=== PATIENT | female | born 1960 | race American Indian/Alaskan Native ===

== ENCOUNTER 2020-08-25 09:04 | Emergency (ER) | payer OTHER ==
[2020-08-25 09:15] VITALS: BP 160/70
[2020-08-25 09:54] LABS: Basophils % (Auto) 0.2 % (0.0-1.8); Hematocrit 41.7 % (30.3-42.9); Hemoglobin 14.2 gm/dl (10.1-14.3); Lymphocytes # (Auto) 0.8 K/mm3 (1.2-5.4); Lymphocytes % (Auto) 12.5 % (13.4-35.0); Mean Corpuscular HGB Conc 34 % (30-34); Mean Corpuscular Volume 101 fl (79-97); Monocytes # (Auto) 0.3 K/mm3 (0.0-0.8); Monocytes % (Auto) 4.8 % (0.0-7.3); Platelet Count 246 K/mm3 (140-440); Red Blood Count 4.13 M/mm3 (3.65-5.03); Red Cell Distribution Width 14.4 % (13.2-15.2)
[2020-08-25 10:29] LABS: Alanine Aminotransferase 23 units/L (7-56); Albumin 4.6 g/dL (3.9-5); BUN/Creatinine Ratio 16; Blood Urea Nitrogen 13 mg/dL (7-17); Calcium 9.9 mg/dL (8.4-10.2); Hemolysis Index 3
[2020-08-25] MEDS ORDERED: POTASSIUM CHLORIDE 10 MEQ 10 MEQ/100 ML BAG IV ONE (12:39)
[2020-08-25] MEDS ORDERED: SODIUM CHLORIDE 0.9% 1000 ML 1,000 ML IV ONE (12:39)
[2020-08-25] MEDS ORDERED: METOCLOPRAMIDE 10 MG/2 ML INJ IV ONE (12:39)
[2020-08-25] MEDS ORDERED: MORPHINE 4 MG/1 ML INJ IV ONE (12:50)
--- NOTE | 2020-08-25 12:52 | Emergency Department Report ---
ED Abdominal Pain HPI - General Chief Complaint: Nausea/Vomiting/Diarrhea Stated Complaint: VOMITTING Time Seen by Provider: 08/25/20 12:38 Source: patient Mode of arrival: Ambulatory Limitations: No Limitations - History of Present Illness Initial Comments: 60-year-old female with a past medical history of IBS presents to the ER today complaining of abdominal pain and vomiting. Patient states her symptoms started . Patient states that she was vomiting almost every hour, but today she is only vomited twice. She states that her emesis is mainly liquid, she denies any hematemesis or coffee-ground emesis. She states that she has been having frequent loose stools but not diarrhea. She reports left-sided abdominal pain. She denies any UTI symptoms, fever, chills, recent bad food intake, recent travel out of the country, or recent antibiotic use. She denies any apparent ill contacts. She is postmenopausal. She states that she went to the urgent care and she was sent here to the ER for further evaluation and treatment. MD Complaint: abdominal pain -: Sudden Severity scale (0 -10): 6 - Related Data Previous Rx's Medication Instructions Recorded Last Taken Type Hyoscyamine Subl [Levsin Sl 0.125 0.125 mg SL Q6HR PRN #10 tab 08/25/20 Unknown Rx TAB] Ondansetron [Zofran Odt] 4 mg PO Q8HR PRN #15 tab.rapdis 08/25/20 Unknown Rx Potassium Chloride [K-Dur] 10 meq PO BID #6 tablet 08/25/20 Unknown Rx Allergies Allergy/AdvReac Type Severity Reaction Status Date / Time No Known Allergies Allergy Unverified 08/25/20 09:15 ED Review of Systems ROS: Stated complaint: VOMITTING Other details as noted in HPI Comment: All other systems reviewed and negative Constitutional: denies: chills, fever Respiratory: denies: cough, shortness of breath, wheezing Cardiovascular: denies: chest pain, palpitations Gastrointestinal: abdominal pain, nausea, vomiting. denies: diarrhea, constipation, hematemesis, hematochezia Genitourinary: denies: urgency, dysuria, discharge Musculoskeletal: denies: back pain, joint swelling, arthralgia Skin: denies: rash, lesions Neurological: denies: headache, weakness, paresthesias Psychiatric: denies: anxiety, depression Hematological/Lymphatic: denies: easy bleeding, easy bruising ED Past Medical Hx - Past Medical History Previous Medical History?: Yes Hx Hypertension: Yes Additional medical history: IBS - Surgical History Past Surgical History?: No - Social History Smoking Status: Current Every Day Smoker Substance Use Type: Alcohol - Medications Home Medications: Home Medications Medication Instructions Recorded Confirmed Last Taken Type Hyoscyamine Subl [Levsin Sl 0.125 0.125 mg SL Q6HR PRN #10 tab 08/25/20 Unknown Rx TAB] Ondansetron [Zofran Odt] 4 mg PO Q8HR PRN #15 tab.rapdis 08/25/20 Unknown Rx Potassium Chloride [K-Dur] 10 meq PO BID #6 tablet 08/25/20 Unknown Rx ED Physical Exam - General Limitations: No Limitations General appearance: alert, in no apparent distress - Head Head exam: Present: atraumatic, normocephalic, normal inspection - ENT ENT exam: Present: normal exam, mucous membranes dry - Neck Neck exam: Present: normal inspection. Absent: meningismus - Respiratory Respiratory exam: Absent: respiratory distress - Cardiovascular Cardiovascular Exam: Present: regular rate, normal rhythm, normal heart sounds - GI/Abdominal GI/Abdominal exam: Present: soft. Absent: distended, tenderness - Neurological Exam Neurological exam: Present: alert, oriented X3, CN II-XII intact - Psychiatric Psychiatric exam: Present: normal affect, normal mood - Skin Skin exam: Present: intact ED Course Vital Signs 08/25/20 09:13 Temperature 98.3 F Pulse Rate 57 L Respiratory 17 Rate Blood Pressure 160/70 [Left] O2 Sat by Pulse 98 Oximetry ED Medical Decision Making - Lab Data Result diagrams: 08/25/20 09:24 08/25/20 09:24 - Radiology Data Radiology results: report reviewed - Medical Decision Making Patient presented to the ER today complaint of vomiting and left-sided abdominal pain. Patient reported improvement of her pain and nausea after Zofran and Tor adol. Patient was able to tolerate the potassium without vomiting. Labs reviewed, CMP showed hypokalemia with a potassium of 2.8 and her urine and her blood contains small amount of ketones which indicates some dehydration, her labs including renal functions, LFTs, and white blood cell count normal. Abdominal x-ray negative for anything acute. Patient has a nonsurgical abdominal exam. Her history, exam, diagnostic testing and current condition does not suggest acute appendicitis, bowel obstruction, bowel perforation, major GI bleed, severe diverticulitis, abdominal aortic aneurysm, mesenteric ischemia, volvulus, sepsis or any other significant pathology warranting further testing, continued ED treatment, admission or surgical consultation at this time. Discussed lab results and imaging results with patient. Discussed suspected diagnosis and treatment plan with patient. Patient expressed understanding of instructions and agree with plan. Patient was stable at time of discharge. Critical care attestation.: If time is entered above; I have spent that time in minutes in the direct care of this critically ill patient, excluding procedure time. ED Disposition Clinical Impression: Nausea and vomiting, Abdominal pain, Gastroenteritis, Hypokalemia Disposition: TO HOME OR SELFCARE Is pt being admited?: No Does the pt Need Aspirin: No Condition: Stable Instructions: Viral Gastroenteritis, Adult, [id number], Nausea and Vomiting, Adult, Potassium Content of Foods Prescriptions: Potassium Chloride [K-Dur] 10 meq PO BID #6 tablet Hyoscyamine Subl [Levsin Sl 0.125 TAB] 0.125 mg SL Q6HR PRN #10 tab PRN Reason: abdominal cramp Ondansetron [Zofran Odt] 4 mg PO Q8HR PRN #15 tab.rapdis PRN Reason: Nausea Referrals: PRIMARY CARE,MD [Primary Care Provider] - 3-5 Days Forms: Work/School Release Form(ED) Time of Disposition: 15:02
--- NOTE | 2020-08-25 13:19 | XRay Report ---
XR abd series w cxr 1VCHEST 1 VIEW, XR ABDOMEN 1 VIEW INDICATION / CLINICAL INFORMATION: epigastric pain. COMPARISON: None available. FINDINGS: SUPPORT DEVICES: None. HEART / MEDIASTINUM: No significant abnormality. LUNGS / PLEURA: Lungs are clear. Costophrenic sulci are sharp. No pneumothorax. ABDOMEN: Nonobstructive bowel gas pattern. No pneumoperitoneum. ADDITIONAL FINDINGS: IUD is present. Right 5 cm calcified fibroid. IMPRESSION: 1. No acute findings. 2. Nonobstructive bowel gas pattern. 3. IUD is present. There is a right calcified fibroid. Signer Name: Tomasz Alvarez MD Signed: 08/25/2020 1:15 PM Workstation Name: [id number]
[2020-08-25] MEDS ORDERED: KETOROLAC 30 MG/1 ML INJ IV ONE (13:30)
[2020-08-25] MEDS ORDERED: ONDANSETRON 4 MG/2 ML INJ IV ONE (13:30)
[2020-08-25] MEDS ORDERED: POTASSIUM CHLORIDE ER 20 MEQ TAB PO ONE (13:30)
[2020-08-25 14:39] LABS: Bilirubin,Urine NEG (Negative); Blood,Urine MOD (Negative); Color,Urine Yellow (Yellow); Mucus,Urine 2+ /HPF; Urobilinogen,Urine < 2.0 mg/dL (<2.0)
== END 2020-08-25 16:03 | disposition home or self-care (01) ==
LOC: ED 09:04
DX: K52.9 Noninfective gastroenteritis and colitis, unspecified (principal); E87.6 Hypokalemia; R11.2 Nausea with vomiting, unspecified; R10.9 Unspecified abdominal pain; I10 Essential (primary) hypertension; F17.200 Nicotine dependence, unspecified, uncomplicated; Z79.899 Other long term (current) drug therapy
CPT/HCPCS: 36415; 74022; 80053; 81001; 82010; 83690; 83735; 85025; 96361; 96374; 96375; 99284; J1885; J2405; J7030

== ENCOUNTER 2020-08-27 09:23 | Emergency (ER) | payer OTHER ==
[2020-08-27] MEDS ORDERED: FAMOTIDINE 20 MG/2 ML INJ IV ONE (09:58)
[2020-08-27] MEDS ORDERED: ONDANSETRON 4 MG/2 ML INJ IV ONE (09:58)
[2020-08-27] MEDS ORDERED: SODIUM CHLORIDE 0.9% 1000 ML 1,000 ML IV ONE (09:58)
--- NOTE | 2020-08-27 09:59 | Emergency Department Report ---
ED General Adult HPI - General Chief complaint: Nausea/Vomiting/Diarrhea Stated complaint: CHEST PAIN/VOMITTING PUI?: No Time Seen by Provider: 08/27/20 09:39 Source: patient, RN notes reviewed, old records reviewed Mode of arrival: Ambulatory Limitations: No Limitations - History of Present Illness Initial comments: The patient was evaluated in the emergency department for symptoms described in the history of present illness. He/she was evaluated in the context of the global COVID-19 pandemic, which necessitated consideration that the patient might be at risk for infection with the virus that causes COVID-19. [facility] protocols and algorithms that pertain to the evaluation of patients at risk for COVID-19 are in a state of rapid change based on information released by regulatory bodies including the CDC and federal and state organizations. These policies and algorithms were followed during the patient's care in the emergency department. Please note that these policies, procedures and recommendations changed on a rapid basis. The patient is a pleasant and cooperative 60-year-old female. She is not known to myself previously. She has a history of hypertension, IBS, and recreational cannabis consumption. The patient was seen in this department a few days ago with a complaint of abdominal cramping, and unopposed nausea and vomiting. Her laboratory studies demonstrated hypokalemia, and urinary ketones. She was discharged with nausea medicine and potassium supplementation. She presents today with complaints of persistent and recurrent intermittent nausea and vomiting. She states that she started having the symptoms approximately 1 week ago. She states that she has no significant abdominal pain currently, but that she had cramping. She is not defecated or passed gas in 1 week. The patient reports no history of abdominal surgeries that she is aware of. The patient denies headache, neck pain, chest pain. She has sore throat. She has no dysuria. The patient occasionally consumes marijuana. The patient states that her symptoms get better if she takes a hot bath and hot shower. Her last consumption of marijuana was approximately 1 week ago. She is going to follow-up with [facility] gastroenterology in the next few days. She thinks that she had a colonoscopy in the past few years, but does not specifically recall the results of this test. She states that she vomited 3 times today, nonbloody, nonbilious. She states that she vomited 6 times yesterday. -: Gradual, days(s) Severity scale (0 -10): 2 Consistency: intermittent Improves with: rest Worsens with: eating - Related Data Previous Rx's Medication Instructions Recorded Last Taken Type Ondansetron [Zofran Odt] 4 mg PO Q8HR PRN #15 tab.rapdis 08/25/20 Unknown Rx Potassium Chloride [K-Dur] 10 meq PO BID #6 tablet 08/25/20 Unknown Rx Veronica Root [Veronica] 250 mg PO QID PRN #30 capsule 08/27/20 Unknown Rx Metoclopramide [Reglan] 10 mg PO QID PRN #30 tab 08/27/20 Unknown Rx Potassium Chloride 20 meq PO BID #30 liquid 08/27/20 Unknown Rx Promethazine [Phenergan SUPPOS] 50 mg MN Q6H PRN #15 supp.rect 08/27/20 Unknown Rx Allergies Allergy/AdvReac Type Severity Reaction Status Date / Time No Known Allergies Allergy Unverified 08/25/20 09:15 ED Review of Systems ROS: Stated complaint: CHEST PAIN/VOMITTING Other details as noted in HPI Constitutional: denies: chills, fever Eyes: denies: eye discharge ENT: denies: epistaxis Respiratory: denies: cough, shortness of breath Cardiovascular: denies: chest pain Gastrointestinal: abdominal pain, nausea, vomiting, constipation Genitourinary: denies: dysuria Musculoskeletal: denies: back pain Neurological: denies: weakness Psychiatric: anxiety Hematological/Lymphatic: denies: easy bleeding ED Past Medical Hx - Past Medical History Previous Medical History?: Yes Hx Hypertension: Yes Additional medical history: IBS - Surgical History Past Surgical History?: No - Social History Smoking Status: Never Smoker Substance Use Type: None - Medications Home Medications: Home Medications Medication Instructions Recorded Confirmed Last Taken Type Ondansetron [Zofran Odt] 4 mg PO Q8HR PRN #15 tab.rapdis 08/25/20 Unknown Rx Potassium Chloride [K-Dur] 10 meq PO BID #6 tablet 08/25/20 Unknown Rx Veronica Root [Veronica] 250 mg PO QID PRN #30 capsule 08/27/20 Unknown Rx Metoclopramide [Reglan] 10 mg PO QID PRN #30 tab 08/27/20 Unknown Rx Potassium Chloride 20 meq PO BID #30 liquid 08/27/20 Unknown Rx Promethazine [Phenergan SUPPOS] 50 mg MN Q6H PRN #15 supp.rect 08/27/20 Unknown Rx ED Physical Exam - General Limitations: No Limitations General appearance: alert, in no apparent distress - Head Head exam: Present: atraumatic, normocephalic - Eye Eye exam: Present: normal appearance, EOMI. Absent: nystagmus - ENT ENT exam: Present: normal exam, normal orophraynx, mucous membranes moist, normal external ear exam - Neck Neck exam: Present: normal inspection, full ROM. Absent: tenderness, meningismus - Respiratory Respiratory exam: Present: normal lung sounds bilaterally. Absent: respiratory distress, wheezes, rales, rhonchi, stridor, decreased breath sounds - Cardiovascular Cardiovascular Exam: Present: regular rate, normal rhythm, normal heart sounds. Absent: bradycardia, tachycardia, irregular rhythm, systolic murmur, diastolic murmur, rubs, gallop - GI/Abdominal GI/Abdominal exam: Present: soft, normal bowel sounds. Absent: distended, tenderness, guarding, rebound, rigid, pulsatile mass - Extremities Exam Extremities exam: Present: normal inspection, full ROM, other (2+ pulses noted in the bilateral upper and lower extremities. There is no palpable cord. negative Homans sign. Muscular compartments are soft. The pelvis is stable.). Absent: pedal edema, calf tenderness - Back Exam Back exam: Present: normal inspection, full ROM. Absent: tenderness, CVA tenderness (R), CVA tenderness (L), paraspinal tenderness, vertebral tenderness - Neurological Exam Neurological exam: Present: alert, oriented X3, other (No facial droop. Tongue midline. Extraocular movements intact bilaterally. Facial sensation intact to light touch in V1, V2, V3 distribution bilaterally. 5 and a 5 strength in 4 extremities. Sensation intact to light touch in 4 extremities.). Absent: motor sensory deficit - Psychiatric Psychiatric exam: Present: normal affect, normal mood - Skin Skin exam: Present: warm, dry, intact, normal color. Absent: rash ED Course Vital Signs 08/27/20 08/27/20 08/27/20 09:24 09:44 09:46 Temperature 98.1 F Pulse Rate 66 68 Respiratory 20 12 Rate Blood Pressure 123/81 126/84 Blood Pressure [Right] O2 Sat by Pulse 97 97 99 Oximetry 08/27/20 08/27/20 08/27/20 09:48 10:00 10:16 Temperature 98.6 F Pulse Rate 86 55 L 61 Respiratory 18 12 13 Rate Blood Pressure 126/84 144/81 Blood Pressure 126/84 [Right] O2 Sat by Pulse 100 98 98 Oximetry 08/27/20 08/27/20 08/27/20 10:34 10:46 11:00 Temperature Pulse Rate 66 61 65 Respiratory 20 14 16 Rate Blood Pressure 144/81 144/81 144/81 Blood Pressure [Right] O2 Sat by Pulse 73 L 89 98 Oximetry 08/27/20 08/27/20 11:16 11:30 Temperature Pulse Rate 69 63 Respiratory 10 L 13 Rate Blood Pressure 142/85 142/85 Blood Pressure [Right] O2 Sat by Pulse 90 98 Oximetry - Reevaluation(s) Reevaluation #1: 08/27/20 10:35 Differential diagnosis, including but not limited to: Obstruction, volvulus, constipation, obstipation, cannabinoid hyperemesis syndrome, cyclic vomiting syndrome, IBS Assessment and plan: 60-year-old female, who was afebrile, with reassuring vital signs, presenting with intermittent nausea and vomiting, no bowel movement times one 1 week. I highly suspect cannabinoid hyperemesis syndrome versus IBS. 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 Patient counseled to discontinue cannabis consumption. We will treat her symptoms. She recently had a urinalysis and CBC obtained. We will recheck basic metabolic panel, and CT scan of the abdomen pelvis. We will treat her symptoms. She is clinically sober at this time. She denies toxic coingestions. I do not see an indication for serum toxicology or urine toxicology screen at this time. Reevaluation #2: 08/27/20 13:14 CT scan of the abdomen pelvis negative for acute findings. Patient's belly soft on repeat examination. Her laboratory studies are reviewed and appreciated. She is given crushed up potassium pills in applesauce. She is able to eat applesauce without difficulty. No active vomiting at this time. She has close outpatient follow-up with [facility]. She is suitable for discharge at this point time with outpatient follow-up. ED Medical Decision Making - Lab Data Result diagrams: 08/27/20 10:43 Vital Signs 08/27/20 08/27/20 09:24 09:48 Temperature 98.1 F 98.6 F Pulse Rate 66 86 Respiratory 20 18 Rate Blood Pressure 123/81 Blood Pressure 1269/84 [Right] O2 Sat by Pulse 97 100 Oximetry - EKG Data -: EKG Interpreted by Me EKG shows normal: sinus rhythm Rate: normal - EKG Data 08/27/20 10:35 Sinus rhythm, bradycardia, QTC within normal limits, low voltage, normal axis, normal intervals, poor R wave progression. The EKG is not a STEMI. There is no prior for comparison. - Radiology Data Radiology results: pending, report reviewed, image reviewed CT ABDOMEN AND PELVIS WITH CONTRAST INDICATION / CLINICAL INFORMATION: Ab dominal pain TECHNIQUE: Axial CT images were obtained through the abdomen and pelvis after IV contrast. All CT scans at this location are performed using CT dose reduction for ALARA by means of automated exposure control. COMPARISON: None available. FINDINGS: LOWER CHEST: Unremarkable LIVER: Focal area of hypoattenuation along the falciform ligament most likely reflects focal fatty infiltration. GALLBLADDER/BILIARY TREE: Unremarkable PANCREAS: Unremarkable SPLEEN: Unremarkable ADRENALS: Unremarkable KIDNEYS / URETER: Unremarkable URINARY BLADDER: Bladder is partially decompressed, though grossly unremarkable. REPRODUCTIVE ORGANS: Calcified uterine fibroids. IUD is present. STOMACH / SMAL L BOWEL: Stomach and small bowel are normal in caliber. No evidence of bowel inflammation. COLON: Colonic diverticulosis without evidence of diverticulitis. The appendix is normal in caliber. LYMPH NODES: No significant adenopathy. VASCULATURE: Mild atherosclerotic calcification without acute abnormality. OTHER: No free air, free fluid, or focal fluid collection is identified. SKELETAL SYSTEM: Mild scattered degenerative changes of the spine. No acute osseous findings. IMPRESSION: 1. No acute abnormality of the abdomen or pelvis. 2. Chronic, incidental findings as above. Signer Name: Rudi Aguilera MD Signed: 08/27/2020 9:51 AM Workstation Name: [id number] Critical care attestation.: If time is entered above; I have spent that time in minutes in the direct care of this critically ill patient, excluding procedure time. ED Disposition Clinical Impression: Hypokalemia, History of nausea and vomiting, Dehydration Disposition: DC-01 TO HOME OR SELFCARE Is pt being admited?: No Does the pt Need Aspirin: No Condition: Stable Additional Instructions: Minimize/avoid consumption of Motrin, ibuprofen, Naprosyn, Aleve, alcohol, heavy and spicy foods. Recommend that patient advance diet to bland foods, including bread, rice, apples, toast. Drink plenty of fluids, preferably Pedialyte or water. Take the potassium supplementation as directed, when taking potassium pills, consider crushing them up in applesauce to facilitate swallowing. Recommend that patient avoid consumption of tobacco, cannabis and marijuana. Do not take metformin medication for the next 2 days, if patient takes this medication. Take the nausea medications as needed and directed, and potassium supplementa tion as directed. Please return to the emergency room right away with new pain, worsened pain, migration of pain, projectile vomiting, change in mental status, confusion, inability to tolerate liquid feeds, new, worsened or different symptoms not present on the initial emergency room evaluation. Patient may continue the Zofran prescription that she was recently given. If this medication does not resolve nausea, patient may use Reglan prescription, and/or veronica prescription as needed for intractable vomiting. If these medications fail, patient may use the Phenergan suppository. Referrals: [facility] [Other] - 3-5 Days [facility] [Provider Group] - 7-10 days
--- NOTE | 2020-08-27 10:55 | Cat Scan Report ---
CT ABDOMEN AND PELVIS WITH CONTRAST INDICATION / CLINICAL INFORMATION: Abdominal pain TECHNIQUE: Axial CT images were obtained through the abdomen and pelvis after IV contrast. All CT sc ans at this location are performed using CT dose reduction for ALARA by means of automated exposure c ontrol. COMPARISON: None available. FINDINGS: LOWER CHEST: Unremarkable LIVER: Focal area of hypoattenuation along the falciform ligament most likely reflects focal fatty in filtration. GALLBLADDER/BILIARY TREE: Unremarkable PANCREAS: Unremarkable SPLEEN: Unremarkable ADRENALS: Unremarkable KIDNEYS / URETER: Unremarkable URINARY BLADDER: Bladder is partially decompressed, though grossly unremarkable. REPRODUCTIVE ORGANS: Calcified uterine fibroids. IUD is present. STOMACH / SMALL BOWEL: Stomach and small bowel are normal in caliber. No evidence of bowel inflammati on. COLON: Colonic diverticulosis without evidence of diverticulitis. The appendix is normal in caliber. LYMPH NODES: No significant adenopathy. VASCULATURE: Mild atherosclerotic calcification without acute abnormality. OTHER: No free air, free fluid, or focal fluid collection is identified. SKELETAL SYSTEM: Mild scattered degenerative changes of the spine. No acute osseous findings. IMPRESSION: 1. No acute abnormality of the abdomen or pelvis. 2. Chronic, incidental findings as above. Signer Name: Rudi Aguilera MD Signed: 08/27/2020 10:51 AM Workstation Name: [id number]
[2020-08-27 11:48] VITALS: BP 126/84
[2020-08-27 11:57] LABS: BUN/Creatinine Ratio 22; Blood Urea Nitrogen 22 mg/dL (7-17); Calcium 9.1 mg/dL (8.4-10.2); Hemolysis Index 13
[2020-08-27] MEDS ORDERED: POTASSIUM CHLORIDE ER 20 MEQ TAB PO ONE (12:05)
[2020-08-27] MEDS ORDERED: LIDOCAINE VISCOUS 2% 15 ML ORAL LIQD PO ONE (12:10)
[2020-08-27] MEDS ORDERED: POTASSIUM CHLORIDE 10 MEQ 10 MEQ/100 ML BAG IV ONE (12:17)
[2020-08-27] MEDS: POTASSIUM CHLORIDE 10 MEQ 10 MEQ/100 ML BAG IV SCH ×2 (12:29→14:04)
== END 2020-08-27 15:05 | disposition home or self-care (01) ==
LOC: ED 09:23
DX: E87.6 Hypokalemia (principal); E86.0 Dehydration; I10 Essential (primary) hypertension; Z79.899 Other long term (current) drug therapy
CPT/HCPCS: 36415; 74177; 80048; 82550; 83735; 93005; 96361; 96365; 96366; 96375; 99284; J2405; J3480; J7030; Q9967

== ENCOUNTER 2020-12-20 17:25 | Emergency (ER) | payer OTHER ==
[2020-12-20] MEDS ORDERED: ASPIRIN 325 MG TAB PO ONE (17:43)
[2020-12-20 18:17] LABS: Basophils % (Auto) 0.2 % (0.0-1.8); Hematocrit 46.3 % (30.3-42.9); Hemoglobin 15.9 gm/dl (10.1-14.3); Lymphocytes # (Auto) 0.4 K/mm3 (1.2-5.4); Lymphocytes % (Auto) 8.7 % (13.4-35.0); Mean Corpuscular HGB Conc 34 % (30-34); Mean Corpuscular Volume 101 fl (79-97); Monocytes # (Auto) 0.1 K/mm3 (0.0-0.8); Monocytes % (Auto) 1.8 % (0.0-7.3); Platelet Count 212 K/mm3 (140-440); Red Blood Count 4.57 M/mm3 (3.65-5.03); Red Cell Distribution Width 15.7 % (13.2-15.2)
--- NOTE | 2020-12-20 18:19 | XRay Report ---
CHEST 2 VIEWS INDICATION / CLINICAL INFORMATION: c/o chest pain. COMPARISON: 08/25/20 FINDINGS: SUPPORT DEVICES: None. HEART / MEDIASTINUM: No significant abnormality. LUNGS / PLEURA: No significant pulmonary or pleural abnormality. No pneumothorax. ADDITIONAL FINDINGS: No significant additional findings. IMPRESSION: 1. No acute findings. No change. Signer Name: Chris Saldaña MD Signed: 12/20/2020 6:14 PM Workstation Name: [id number]
[2020-12-20 18:26] LABS: Alanine Aminotransferase 43 units/L (7-56); Albumin 4.6 g/dL (3.9-5); BUN/Creatinine Ratio 10; Blood Urea Nitrogen 8 mg/dL (7-17); Hemolysis Index 9
[2020-12-20] MEDS ORDERED: METOCLOPRAMIDE 10 MG/2 ML INJ IV ONE (20:37)
[2020-12-20] MEDS ORDERED: ONDANSETRON 4 MG/2 ML INJ IV ONE (20:37)
[2020-12-20] MEDS ORDERED: diphenhydrAMINE 50 MG/ML VIAL IV ONE (20:37)
[2020-12-20] MEDS ORDERED: PANTOPRAZOLE 40 MG INJ IV ONE (20:42)
--- NOTE | 2020-12-20 20:43 | Emergency Department Report ---
ED Abdominal Pain HPI - General Chief Complaint: Chest Pain Stated Complaint: CHEST/ABD PAIN Time Seen by Provider: 12/20/20 20:28 Source: patient, old records reviewed Mode of arrival: Ambulatory Limitations: No Limitations - History of Present Illness Initial Comments: 60-year-old female the past medical history of hypertension and recently diagnosed with IBS presents to the hospital complaints of nausea, vomiting, with p.o. intolerance x3 days with constipation. Patient has had similar symptoms since July and had several ER visits here in August. She had outpatient endoscopy in August as well. Patient was seen by her GI doctor Dr. Alen Rea MD affiliated with [facility] on December 14. She was started on Zofran 4 mg every 12 hours as needed nausea, pantoprazole delayed release 40 mg once a day for esophagitis, and Linzess 145 mcg for constipation. Patient denies any p.o. intolerance doing this GI visit. Patient has been taking these medications for the last 3 days without improvement. Is noted during the visit here in August she admits to cannabis use and suspected to have cannabis hyperemesis syndrome patient is currently unable to tolerate fluid or food intake. She complains of a nauseated feeling to her epigastric area without significant pain. She also denies fever, hematochezia, or melena. Patient states she drinks alcohol on occasion but has decreased intake secondary to increased reflux symptoms. She also continues to occasionally use marijuana. Patient had a CT abdomen pelvis here August 27 without acute findings. No abdominal surgeries reported. - Related Data Previous Rx's Medication Instructions Recorded Last Taken Type Ondansetron [Zofran Odt] 4 mg PO Q8HR PRN #15 tab.rapdis 08/25/20 Unknown Rx Potassium Chloride [K-Dur] 10 meq PO BID #6 tablet 08/25/20 Unknown Rx Veronica Root [Veronica] 250 mg PO QID PRN #30 capsule 08/27/20 Unknown Rx Metoclopramide [Reglan] 10 mg PO QID PRN #30 tab 08/27/20 Unknown Rx Potassium Chloride 20 meq PO BID 3 Days liquid 12/21/20 Unknown Rx Promethazine [Phenergan SUPPOS] 50 mg TX Q6H PRN #15 supp.rect 12/21/20 Unknown Rx Allergies Allergy/AdvReac Type Severity Reaction Status Date / Time No Known Allergies Allergy Unverified 08/25/20 09:15 ED Review of Systems ROS: Stated complaint: CHEST/ABD PAIN Other details as noted in HPI ED Past Medical Hx - Past Medical History Previous Medical History?: Yes Hx Hypertension: Yes Additional medical history: IBS - Surgical History Past Surgical History?: No - Social History Smoking Status: Current Every Day Smoker Substance Use Type: Alcohol, Prescribed - Medications Home Medications: Home Medications Medication Instructions Recorded Confirmed Last Taken Type Ondansetron [Zofran Odt] 4 mg PO Q8HR PRN #15 tab.rapdis 08/25/20 Unknown Rx Potassium Chloride [K-Dur] 10 meq PO BID #6 tablet 08/25/20 Unknown Rx Veronica Root [Veronica] 250 mg PO QID PRN #30 capsule 08/27/20 Unknown Rx Metoclopramide [Reglan] 10 mg PO QID PRN #30 tab 08/27/20 Unknown Rx Potassium Chloride 20 meq PO BID 3 Days liquid 12/21/20 Unknown Rx Promethazine [Phenergan SUPPOS] 50 mg [place] Q6H PRN #15 supp.rect 12/21/20 Unknown Rx ED Physical Exam - General Limitations: No Limitations - Other Other exam information: General: No acute distress Head: Atraumatic Eyes: normal appearance Neck: Normal appearance, no midline tenderness Chest: Clear to auscultation bilaterally CV: Regular rate and rhythm Abdomen: Soft, normal bowel sounds, nontender, nondistended, no rebound or guarding Back: Normal inspection Extremity: Normal inspection, full range of motion Neuro: Alert O x 3, no facial asymmetry, speech clear, no gross motor sensory deficit Psych: Appropriate behavior Skin: No rash ED Course Vital Signs 12/20/20 12/20/20 12/20/20 20:34 20:45 21:01 Pulse Rate 63 61 Respiratory 22 18 Rate Blood Pressure 162/87 147/78 O2 Sat by Pulse 99 100 100 Oximetry 12/20/20 12/20/20 12/20/20 21:15 21:30 21:45 Pulse Rate 62 61 Respiratory 17 18 Rate Blood Pressure 148/80 148/80 153/84 O2 Sat by Pulse 100 100 100 Oximetry 12/20/20 12/20/20 12/20/20 22:01 22:15 22:31 Pulse Rate 62 64 65 Respiratory 16 17 15 Rate Blood Pressure 166/85 148/80 146/77 O2 Sat by Pulse 100 100 100 Oximetry 12/20/20 12/20/20 12/20/20 22:45 23:01 23:15 Pulse Rate 62 64 64 Respiratory 18 16 19 Rate Blood Pressure 146/77 139/76 139/76 O2 Sat by Pulse 100 100 100 Oximetry 12/20/20 23:31 Pulse Rate Respiratory Rate Blood Pressure 143/85 O2 Sat by Pulse 100 Oximetry ED Medical Decision Making - Lab Data Result diagrams: 12/20/20 17:51 12/20/20 17:51 Lab Results 12/20/20 12/20/20 12/20/20 Range/Units 17:51 17:51 17:51 WBC 4.3 L (4.5-11.0) K/mm3 RBC 4.57 (3.65-5.03) M/mm3 Hgb 15.9 H (10.1-14.3) gm/dl Hct 46.3 H (30.3-42.9) % MCV 101 H (79-97) fl MCH 35 H (28-32) pg MCHC 34 (30-34) % RDW 15.7 H (13.2-15.2) % Plt Count 212 (140-440) K/mm3 Lymph % (Auto) 8.7 L (13.4-35.0) % [place] % (Auto) 1.8 (0.0-7.3) % Eos % (Auto) 0.0 (0.0-4.3) % Baso % (Auto) 0.2 (0.0-1.8) % Lymph # (Auto) 0.4 L (1.2-5.4) K/mm3 [place] # (Auto) 0.1 (0.0-0.8) K/mm3 Eos # (Auto) 0.0 (0.0-0.4) K/mm3 Baso # (Auto) 0.0 (0.0-0.1) K/mm3 Seg Neutrophils % 89.3 H (40.0-70.0) % Seg Neutrophils # 3.8 (1.8-7.7) K/mm3 Sodium 138 (137-145) mmol/L Potassium 3.1 L (3.6-5.0) mmol/L Chloride 94.2 L (98-107) mmol/L Carbon Dioxide 28 (22-30) mmol/L Anion Gap 19 mmol/L BUN 8 (7-17) mg/dL Creatinine 0.8 (0.6-1.2) mg/dL Estimated GFR > 60 ml/min BUN/Creatinine Ratio 10 % Glucose 151 H (65-100) mg/dL Calcium 10.0 (8.4-10.2) mg/dL Magnesium (1.7-2.3) mg/dL Total Bilirubin 0.70 (0.1-1.2) mg/dL AST 51 H (5-40) units/L ALT 43 (7-56) units/L Alkaline Phosphatase 59 (35-129) units/L Troponin T (0.00-0.029) ng/mL Total Protein 7.7 (6.3-8.2) g/dL Albumin 4.6 (3.9-5) g/dL Albumin/Globulin Ratio 1.5 % Lipase 13 (13-60) units/L Urine Color (Yellow) Urine Turbidity (Clear) Urine pH (5.0-7.0) Ur Specific [place] (1.003-1.030) Urine Protein (Negative) mg/dL Urine Glucose (UA) (Negative) mg/dL Urine Ketones (Negative) mg/dL Urine Blood (Negative) Urine Nitrite (Negative) Ur Reducing Substances Urine Bilirubin (Negative) Urine Ictotest Urine Urobilinogen (<2.0) mg/dL Ur Leukocyte Esterase (Negative) Urine WBC (Auto) (0.0-6.0) /HPF Urine RBC (Auto) (0.0-6.0) /HPF U Epithel Cells (Auto) (0-13.0) /HPF Urine Bacteria (Auto) (Negative) /HPF Urine Mucus /HPF Urine Opiates Screen Urine Methadone Screen Ur Barbiturates Screen Ur Phencyclidine Scrn Ur Amphetamines Screen U Benzodiazepines Scrn Urine Cocaine Screen U Marijuana (THC) Screen Drugs of Abuse Note 12/20/20 12/20/20 12/20/20 Range/Units 17:51 17:57 21:29 WBC (4.5-11.0) K/mm3 RBC (3.65-5.03) M/mm3 Hgb (10.1-14.3) gm/dl Hct (30.3-42.9) % MCV (79-97) fl MCH (28-32) pg MCHC (30-34) % RDW (13.2-15.2) % Plt Count (140-440) K/mm3 Lymph % (Auto) (13.4-35.0) % [place] % (Auto) (0.0-7.3) % Eos % (Auto) (0.0-4.3) % Baso % (Auto) (0.0-1.8) % Lymph # (Auto) (1.2-5.4) K/mm3 [place] # (Auto) (0.0-0.8) K/mm3 Eos # (Auto) (0.0-0.4) K/mm3 Baso # (Auto) (0.0-0.1) K/mm3 Seg Neutrophils % (40.0-70.0) % Seg Neutrophils # (1.8-7.7) K/mm3 Sodium (137-145) mmol/L Potassium (3.6-5.0) mmol/L Chloride (98-107) mmol/L Carbon Dioxide (22-30) mmol/L Anion Gap mmol/L BUN (7-17) mg/dL Creatinine (0.6-1.2) mg/dL Estimated GFR ml/min BUN/Creatinine Ratio % Glucose (65-100) mg/dL Calcium (8.4-10.2) mg/dL Magnesium 2.00 (1.7-2.3) mg/dL Total Bilirubin (0.1-1.2) mg/dL AST (5-40) units/L ALT (7-56) units/L Alkaline Phosphatase (35-129) units/L Troponin T < 0.010 (0.00-0.029) ng/mL Total Protein (6.3-8.2) g/dL Albumin (3.9-5) g/dL Albumin/Globulin Ratio % Lipase (13-60) units/L Urine Color (Yellow) Urine Turbidity (Clear) Urine pH (5.0-7.0) Ur Specific [place] (1.003-1.030) Urine Protein (Negative) mg/dL Urine Glucose (UA) (Negative) mg/dL Urine Ketones (Negative) mg/dL Urine Blood (Negative) Urine Nitrite (Negative) Ur Reducing Substances Urine Bilirubin (Negative) Urine Ictotest Urine Urobilinogen (<2.0) mg/dL Ur Leukocyte Esterase (Negative) Urine WBC (Auto) (0.0-6.0) /HPF Urine RBC (Auto) (0.0-6.0) /HPF U Epithel Cells (Auto) (0-13.0) /HPF Urine Bacteria (Auto) (Negative) /HPF Urine Mucus /HPF Urine Opiates Screen Negative Urine Methadone Screen Negative Ur Barbiturates Screen Negative Ur Phencyclidine Scrn Negative Ur Amphetamines Screen Negative U Benzodiazepines Scrn Negative Urine Cocaine Screen Negative U Marijuana (THC) Screen Positive Drugs of Abuse Note Disclamer 12/20/20 Range/Units 21:29 WBC (4.5-11.0) K/mm3 RBC (3.65-5.03) M/mm3 Hgb (10.1-14.3) gm/dl Hct (30.3-42.9) % MCV (79-97) fl MCH (28-32) pg MCHC (30-34) % RDW (13.2-15.2) % Plt Count (140-440) K/mm3 Lymph % (Auto) (13.4-35.0) % [place] % (Auto) (0.0-7.3) % Eos % (Auto) (0.0-4.3) % Baso % (Auto) (0.0-1.8) % Lymph # (Auto) (1.2-5.4) K/mm3 [place] # (Auto) (0.0-0.8) K/mm3 Eos # (Auto) (0.0-0.4) K/mm3 Baso # (Auto) (0.0-0.1) K/mm3 Seg Neutrophils % (40.0-70.0) % Seg Neutrophils # (1.8-7.7) K/mm3 Sodium (137-145) mmol/L Potassium (3.6-5.0) mmol/L Chloride (98-107) mmol/L Carbon Dioxide (22-30) mmol/L Anion Gap mmol/L BUN (7-17) mg/dL Creatinine (0.6-1.2) mg/dL Estimated GFR ml/min BUN/Creatinine Ratio % Glucose (65-100) mg/dL Calcium (8.4-10.2) mg/dL Magnesium (1.7-2.3) mg/dL Total Bilirubin (0.1-1.2) mg/dL AST (5-40) units/L ALT (7-56) units/L Alkaline Phosphatase (35-129) units/L Troponin T (0.00-0.029) ng/mL Total Protein (6.3-8.2) g/dL Albumin (3.9-5) g/dL Albumin/Globulin Ratio % Lipase (13-60) units/L Urine Color [place] (Yellow) Urine Turbidity Slightly-cloudy (Clear) Urine pH 5.0 (5.0-7.0) Ur Specific [place] 1.027 (1.003-1.030) Urine Protein 100 mg/dl (Negative) mg/dL Urine Glucose (UA) 50 (Negative) mg/dL Urine Ketones 80 (Negative) mg/dL Urine Blood Mod (Negative) Urine Nitrite Neg (Negative) Ur Reducing Substances Not Reportable Urine Bilirubin Neg (Negative) Urine Ictotest Not Reportable Urine Urobilinogen 2.0 (<2.0) mg/dL Ur Leukocyte Esterase Neg (Negative) Urine WBC (Auto) 5.0 (0.0-6.0) /HPF Urine RBC (Auto) 23.0 (0.0-6.0) /HPF U Epithel Cells (Auto) 4.0 (0-13.0) /HPF Urine Bacteria (Auto) 2+ (Negative) /HPF Urine Mucus 3+ /HPF Urine Opiates Screen Urine Methadone Screen Ur Barbiturates Screen Ur Phencyclidine Scrn Ur Amphetamines Screen U Benzodiazepines Scrn Urine Cocaine Screen U Marijuana (THC) Screen Drugs of Abuse Note - EKG Data -: EKG Interpreted by Mn EKG shows normal: sinus rhythm, ST-T waves (no stemi) Rate: bradycardia (56) - Radiology Data Radiology results: report reviewed CHEST 2 VIEWS INDICATION / CLINICAL INFORMATION: c/o chest pain. COMPARISON: 08/25/20 FINDINGS: SUPPORT DEVICES: None. HEART / MEDIASTINUM: No significant abnormality. LUNGS / PLEURA: No significant pulmonary or pleural abnormality. No pneumothorax. ADDITIONAL FINDINGS: No significant additional findings. IMPRESSION: 1. No acute findings. No change. - Medical Decision Making 60-year-old female with a past medical history of IBS and recurrent episodes of nausea vomiting presents to hospital nausea vomiting p.o. intolerance despite taking prescribed medication. In ED patient was treated with IV Zofran, IV Reglan, and IV Benadryl as well as 2 L of D5 NS. Patient tolerating p.o. intake after treatment and therefore was provided p.o. potassium for mild hypokalemia. At time of disposition patient reports feeling better and tolerated p.o. intake. She is hesitant but agreeable to being prescribed [place] Phenergan for residual symptoms if they return despite oral Zofran ODT. Outpatient follow-up with GI recommended. UDS once again positive for marijuana is unclear at this time if symptoms are related to hyperemesis secondary to THC since patient reports only occasional use Critical Care Time: No Critical care attestation.: If time is entered above; I have spent that time in minutes in the direct care of this critically ill patient, excluding procedure time. ED Disposition Clinical Impression: Nausea & vomiting, Dehydration, IBS (irritable bowel syndrome), Hypokalemia Disposition: TO HOME OR SELFCARE Is pt being admited?: No Does the pt Need Aspirin: No Condition: Stable Instructions: Hypokalemia, Dehydration, Adult, [place], Nausea and Vomiting, Adult, Irritable Bowel Syndrome, Adult Additional Instructions: Take the medication as prescribed. Follow-up with your doctor or doctor/clinic provided. Return if symptoms worsen as indicated by your discharge instructions. Prescriptions: Promethazine [Phenergan SUPPOS] 50 mg TX Q6H PRN #15 supp.rect PRN Reason: Nausea Potassium Chloride 20 meq PO BID 3 Days liquid Referrals: MEGHANA JACOBS MD [Primary Care Provider] - 3-5 Days your, GI doctor [Other] - 3-5 Days Time of Disposition: 00:54
[2020-12-20] MEDS ORDERED: POTASSIUM CHLORIDE ER 20 MEQ TAB PO ONE (20:44)
[2020-12-20] MEDS ORDERED: D5W/0.9% NACL 1,000 ML IV SCH ×2 (21:00→23:45)
[2020-12-20 21:44] LABS: Bacteria,Urine 2+ /HPF (Negative); Bilirubin,Urine NEG (Negative); Blood,Urine MOD (Negative); Color,Urine Amber (Yellow); Mucus,Urine 3+ /HPF
[2020-12-20 21:45] LABS: Amphetamine Screen,Urine Negative; Benzodiazepines Screen,Urine Negative; Cocaine Screen,Urine Negative; Methadone Screen,Urine Negative; Opiate Screen,Urine Negative
[2020-12-20 22:04] LABS: Cannabinoid Screen,Urine Positive
[2020-12-21 01:33] VITALS: BP 135/76
--- NOTE | 2020-12-23 08:41 | Electrocardiograph Report ---
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
== END 2020-12-21 01:12 | disposition home or self-care (01) ==
LOC: ED 17:25
DX: K58.9 Irritable bowel syndrome, unspecified (principal); R11.2 Nausea with vomiting, unspecified; E86.0 Dehydration; E87.6 Hypokalemia; I10 Essential (primary) hypertension; F17.200 Nicotine dependence, unspecified, uncomplicated; Z79.899 Other long term (current) drug therapy
CPT/HCPCS: 36415; 71046; 80053; 80307; 81001; 83690; 83735; 84484; 85025; 93005; 96361; 96374; 96375; 99284; C9113; J1200; J2405; J2765; J7042